=== PATIENT | male | born 1965 | race Caucasian/White ===

== ENCOUNTER → 2018-04-25 | Outpatient (CLI) | payer OTHER ==
[2018-04-15 09:47] VITALS: BMI 35.0
--- NOTE | 2018-04-24 16:08 | PAT Medication Instructions ---
Service Date Apr 24, 2018. Current Home Medication List Ibuprofen (Ibuprofen), 1 TAB PO UD PRN for Pain Medication Instructions For Your Scheduled Surgery - Check with surgeon and prescribing physician for instructions: Ibuprofen (Ibuprofen), 1 TAB PO UD PRN for Pain If you have any questions please call us at [phone] or [phone] or [phone]
[~2018-04-25] MED LIST: MTR800 PO
[2018-04-25 10:44] VITALS: BMI 39.0
[2018-04-25 11:59] LABS: BASO % 0.5 %; BASO ABS # 0.03 K/uL (0-0.2); EOS % 3.1 %; HEMATOCRIT 44.3 % (42-52); HEMOGLOBIN 15.2 g/dL (14.0-18.0); LYMPH % 40.2 %; LYMPH ABS # 2.56 K/uL (1.2-3.4); MEAN CORPUSCULAR HEMOGLOBIN 29.5 pg (25-34); MEAN CORPUSCULAR HGB CONC 34.3 g/dl (32-36); MEAN PLATELET VOLUME 10.1 fL (7.4-10.4); MONO % 8.5 %; MONO ABS # 0.54 K/uL (0.11-0.59); NEUT % 47.7 %; NEUT ABS # 3.04 K/uL (1.4-6.5); PLATELET COUNT 238 K/uL (130-400); WHITE BLOOD COUNT 6.37 K/uL (4.8-10.8)
[2018-04-25 12:13] LABS: INR 1.1 (0.9-1.1); PTT PATIENT 24.8 SECONDS (21.0-31.0)
[2018-04-25 12:28] LABS: HEMOGLOBIN A1C 5.3 % (4.5-5.6)
[2018-04-25 12:46] LABS: ALBUMIN 4.1 gm/dl (3.4-5.0); CALCIUM 8.9 mg/dl (8.5-10.1); CREATININE 0.96 mg/dl (0.60-1.40); POTASSIUM 4.5 mmol/L (3.5-5.1)
--- NOTE | 2018-04-25 12:57 | DIAGNOSTIC IMAGING REPORT ---
CHEST 2 VIEWS ROUTINE HISTORY: Preop. COMPARISON: None. FINDINGS: The lungs are clear. Cardiac silhouette is normal in size. No pleural effusions. No pneumothorax. IMPRESSION: No acute process. Electronically signed by: Dixon Goodman M.D. 04/25/2018 12:55 PM Dictated Date/Time: 04/25/2018 12:41 PM
--- NOTE | 2018-05-16 10:22 | CODING QUERY NO DIAGNOSIS ---
TREATMENT RENDERED WITHOUT A DIAGNOSIS 66 To promote full compliance with coding requirements relating to patient care, physician participation is requested in all cases of computer repair instructor uncertainty. Please assist us with providing a diagnosis/symptom for the test(s) below: A diagnosis/symptom was not documented on your Order. A valid diagnosis/symptom is required to bill all insurances. Please remember that we are unable to code a diagnosis of rule out, probable, possible, questionable, or suspected. DOS 04/25/18 Tests that require a diagnosis: * CBC W/AUTO DIFF DIAGNOSIS: * PARTIAL RENAL PROFILE DIAGNOSIS: * PTT DIAGNOSIS: * PROTHROMBIN TIME DIAGNOSIS: * UA CLEAN CATCH DIAGNOSIS: * HEMOGLOBIN A1C DIAGNOSIS: * ALBUMIN DIAGNOSIS: * ECG ROUTINE DIAGNOSIS: * CHEST 2 VIEWS DIAGNOSIS: Provider Signature: Date: Thank you Perla Munguia [employer] Once completed, please kindly fax back to [phone] For questions please call [phone]
== END | disposition home or self-care (01) ==
LOC: C.LAB 08:00 → EDSTATUS 06-12 08:15
DX: Z01.818 Encounter for other preprocedural examination (principal); E11.9 Type 2 diabetes mellitus without complications